=== PATIENT | female | born 2000 | race Caucasian/White ===

== ENCOUNTER → 2021-04-06 16:17 | Outpatient (CLI) | payer OTHER, SELFPAY ==
--- NOTE | ~2021-04-06 | US_ITS ---
EXAMINATION: US pelvic complete DATE: 04/06/2021 16:36 INDICATION: Pelvic pain Comparison:No prior studies for comparison. TECHNIQUE: Multiple transabdominal and endovaginal sonographic images of the pelvis performed. FINDINGS: The uterus measures 6.8 x 3.3 x 4.3 cm. The endometrial complex measures 4. The right ovary measures 2.7 x 2 x 2.1 cm and the left ovary measures 2.5 x 1.9 x 1.8 cm. There are small follicles in each ovary. Normal doppler signal in both ovaries. There is no free fluid in the pelvis. There are no abnormal masses seen on either side. IMPRESSION: 1. Normal pelvic ultrasound. Reviewed, dictated and finalized at location A. 3RD MATE
== END ==
PROVIDERS: Visit Provider Nurse Practitioner
DX: R10.2 Pelvic and perineal pain (principal)
CPT/HCPCS: 76856

== ENCOUNTER → 2021-05-24 10:36 | Outpatient (CLI) | payer OTHER, SELFPAY ==
--- NOTE | ~2021-05-24 | US_ITS ---
EXAMINATION: US pelvic complete w TV DATE: 05/24/2021 11:44 INDICATION: Pelvic and perineal pain. TECHNIQUE: Multiple transabdominal and transvaginal sonographic images of the pelvis were obtained. COMPARISON: Ultrasound 04/06/2021 FINDINGS: TRANSABDOMINAL ULTRASOUND: The uterus measures 7.3 x 3.4 x 3.8 cm. There is no free fluid in the pelvis. TRANSVAGINAL ULTRASOUND: The endometrial complex measures 3 mm in thickness. The right ovary measures 3.7 x 2.7 x 2.2 cm. The left ovary measures 3.4 x 2.2 x 2.5 cm. There is normal vascular flow in the ovaries. IMPRESSION: 1. Normal pelvis. Reviewed, dictated and finalized at location B. IC[employer] ESTHETICIAN IMPRESSION: 1. Normal pelvis.
== END ==
DX: R10.2 Pelvic and perineal pain (principal)
CPT/HCPCS: 76830; 76856

== ENCOUNTER 2021-10-19 15:24 | Emergency (ER) | payer OTHER, MEDICAID, SELFPAY ==
--- NOTE | ~2021-10-19 | US_ITS ---
EXAMINATION: US OB <= 14 weeks fetus INDICATION: Vaginal bleeding, 6 weeks . TECHNIQUE: Sonography of the pelvis was performed by transabdominal and transvaginal techniques. COMPARISON: Pelvic ultrasound 05/24/2021. RESULT: Uterus: - Orientation: Slightly retroverted. - Size: 7.9 x 3.5 x 4.1 cm - Myometrium: homogeneous echogenicity . Endometrium measures 6 mm in thickness. Trace endometri al fluid in the uterine body. More focal, 2 x 7 mm thick fluid collection within the distal endocervi kathy portion of the endometrial cavity versus nabothian cyst. Gestation: - Intrauterine gestational sac: Not seen Right ovary: - Size : 2.0 x 2.4 x 1.8 cm - Normal sonographic appearance with physiologic follicles. Vascular flow is present. No adnexa l mass. Left ovary: - Size: 1.6 x 2.0 x 2.2 cm - Normal sonographic appearance with physiologic follicles. Vascular flow is present. No adnexa l mass. Pelvis free fluid: None. IMPRESSION: Positive test with no intrauterine gestational sac visualized. Findings represent pregnanc y of unknown location. Differential diagnosis includes early normal, failed early, or ectopic pregna ncy. Recommend follow-up serial beta-hCG values. Ultrasound follow-up should be considered as clini ronak warranted. Reviewed, dictated and finalized at location K. IMPRESSION: Positive test with no intrauterine gestational sac visualized. Findi ngs represent of unknown location. Differential diagnosis includes e mehdi normal, failed early, or ectopic . Recommend follow-up serial be ta-hCG values. Ultrasound follow-up should be considered as clinically warrant ed.
[2021-10-19 15:33] VITALS: BP 120/66; PULSE 102; RESP 18; TEMP 36.5; O2SAT 100
--- NOTE | 2021-10-19 16:07 | ED.FEMALEGU ---
HPI - Female Genitourinary General Chief complaint: Vaginal Bleeding Stated complaint: 6WKS PREG VAG BLEED Time Seen by Provider: 10/19/21 15:56 History of Present Illness HPI Narrative: Patient is a 21-year-old female G1, P0 currently 6 weeks dated by last menstrual period presenting to the emergency department for evaluation vaginal bleeding in early . Patient states that she began to have some light spotting that was brown in coloration yesterday that has progressed to bright red vaginal discharge. Patient reports passing of some clot. She denies brisk bleeding. She denies soaking through 1 pad per hour. She denies any significant pelvic pain or cramping, no back pain. Patient denies fever, chills, nausea, vomiting. Patient denies ultrasound and at this point. She states she was seen by her BULK DELIVERY DRIVER this morning who did a pelvic examination and sent some basic blood work and was advising her to return for blood work later this week. Patient denies any dysuria or hematuria. She denies recent sexual intercourse. She denies recent fall or trauma. Related Data Allergies Allergy/AdvReac Type Severity Reaction Status Date / Time No Known Allergies Allergy Verified 10/19/21 16:06 Review of Systems Review of Systems: CONSTITUTIONAL: Denies fever, chills, or sweats. EYES: Denies visual changes, redness, or discharge. ENT: Denies rhinorrhea, congestion, sore throat, or otalgia. CARDIOVASCULAR: Denies chest pain, palpitations, or edema. RESPIRATORY: Denies cough or dyspnea. GASTROINTESTINAL: Denies abdominal pain, nausea, vomiting, or diarrhea. GENITOURINARY: Denies dysuria or hematuria. Patient reports vaginal bleeding. SKIN: Denies rash or itching. MUSCULOSKELETAL: Denies back pain, joint pain, or myalgia. NEUROLOGIC: Denies headache, numbness, or weakness. Exam Narrative: GENERAL: Awake, alert, conversant HEAD: Normocephalic, atraumatic. EYES: PERRLA and EOMI. ENT: Nares clear, no rhinorrhea or epistaxis. Mucous membranes moist. NECK: Supple. CHEST: No respiratory distress, breathing even and non labored HEART: Regular rate, sinus rhythm ABDOMEN:Non distended, non tender, pelvis is nontender. No flank tenderness bilaterally. Labia majora and minora normal without lesions. Vagina blood present, no large blood clot No cervical motion tenderness. No adnexal tenderness or fullness bilaterally. Os is dilated to 1 cm. EXTREMITIES: Normal range of motion. No edema. SKIN: Warm, dry, no rash. NEURO:No focal deficits. Alert and oriented x3 Course Vital Signs Vital signs: Vital Signs Temperature 36.5 C 10/19/21 15:33 Pulse Rate 102 H 10/19/21 15:33 Respiratory Rate 18 10/19/21 15:33 Blood Pressure 120/66 10/19/21 15:33 Pulse Oximetry 100 10/19/21 15:33 Oxygen Delivery Room Air 10/19/21 15:33 Temperature 36.5 C 10/19/21 15:33 Pulse Rate 102 H 10/19/21 15:33 Respiratory Rate 18 10/19/21 15:33 Blood Pressure 120/66 10/19/21 15:33 Pulse Oximetry 100 10/19/21 15:33 Oxygen Delivery Room Air 10/19/21 15:33 MDM - Female Genitourinary MDM Narrative Medical decision making narrative: Patient presenting for evaluation of vaginal bleeding in the setting of early . Patient blood type verified here is O+ does not require RhoGAM. On exam, she does have a dilated cervical os with some extrusion of products that are concerning for miscarriage today. Patient's beta-hCG is in the 300s, an ultrasound does not verify an intrauterine . Patient will require repeat BULK DELIVERY DRIVER follow-up as well as repeat beta-hCG testing. Her UA is not consistent with UTI. At this point, counseled patient on findings which seem very concerning for miscarriage or threatened miscarriage. She does have follow-up in place with her BULK DELIVERY DRIVER. She was advised to take Tylenol if needed for pain and to return if she experiences brisk or significantly heavy bleeding, worsening pain or other
--- NOTE | 2021-10-19 16:19 | PC.NURSE ---
EDP at bedside to assess pt.
--- NOTE | 2021-10-19 16:32 | PC.NURSE ---
Patient off unit to US.
[2021-10-19 17:02] LABS: Appearance Urine Clear (Clear); Bilirubin Urine Negative (Negative); Blood Urine 3+ (Negative); Color Urine Yellow (Yellow); Glucose Urine UA Negative (Negative); Ketones Urine Negative (Negative); Leukocyte Esterase Ur Negative LEU/UL (Negative); Nitrate Urine Negative (Negative); Protein Urine Negative (Negative); Urobilinogen Urine 0.2 mg/dL (<2.0); pH Urine 7.5 (5.0-9.0)
[2021-10-19 17:04] LABS: Mucus Urine Rare /lpf; RBC Urine >75 /hpf (0-2); WBC Urine 0-3 /hpf
[2021-10-19 17:12] LABS: Add Urine Microscopic? YES
[2021-10-19] MEDS: SODIUM CHLORIDE 0.9% IV 500 ML 999 ML IV CONT (17:31)
[2021-10-19 17:52] LABS: Basophils Absolute Auto 0.1 K/mm3 (0.0-0.1); Basophils Percent Auto 0.5 % (0.2-1.2); Eosinophils Percent Auto 0.4 % (0-4.4); Hematocrit 39.8 % (37.0-47.0); Hemoglobin 12.7 g/dL (12.0-15.0); Immature Granulocyte Absolute 0.02 K/mm3 (0.00-0.031); Immature Granulocyte Percent A 0.2 % (0-0.5); Lymphocytes Absolute Auto 2.84 K/mm3 (0.9-3.2); Lymphocytes Percent Auto 29.6 % (18.3-44.2); Mean Corpuscular HGB Conc 31.9 g/dl (32-36); Mean Corpuscular Hemoglobin 27.7 pg (26-34); Mean Corpuscular Volume 86.9 fl (80-100); Mean Platelet Volume 9.6 fl (7.4-10.4); Monocytes Absolute Auto 0.6 K/mm3 (0.1-0.6); Monocytes Percent Auto 6.4 % (2.6-8.5); Neutrophils Percent Auto 62.9 % (45.5-73.1); Platelet Count Result 369 k/mm3 (150-375); Red Blood Count 4.58 M/mm3 (4.2-5.4); Red Cell Distribution Width 13.7 % (11.5-14.5); White Blood Count 9.6 K/mm3 (4.5-10.0)
[2021-10-19 17:56] LABS: Anion Gap 7 mmol/L (8-16); Blood Urea Nitrogen 8 mg/dL (7-17); Carbon Dioxide 26 mmol/L (22-30); Chloride 108 mmol/L (98-107); Estimated CRCL calculation 111 ml/min; Estimated Glomerular Filt Rate > 60; Glucose 93 mg/dL (65-110); Potassium 4.1 mmol/L (3.4-5.0); Sodium 141 mmol/L (137-145)
[2021-10-19 18:13] LABS: Beta HCG Quantitative 360.17 mIU/ML
== END 2021-10-19 18:55 | disposition home or self-care (01) ==
PROVIDERS: Emergency Provider Emergency Medicine
DX: O20.0 Threatened abortion (principal); Z3A.01 Less than 8 weeks gestation of pregnancy
CPT/HCPCS: 36415; 76801; 80048; 81001; 84702; 85025; 85461; 96360; 99284; J7040